=== PATIENT | female | born 1940 | race Caucasian/White ===

== ENCOUNTER 2017-06-05 10:23 | Emergency (ER) | payer OTHER ==
[2017-06-05 10:34] VITALS: BP 157/94
--- NOTE | 2017-06-05 11:28 | UC ---
Eye Complaint HPI - HPI Summary HPI Summary: swelling left upper eyelid, no eye pain, no eye redness , no eye discharge, no change in vision - History of Current Complaint Chief Complaint: UCEye Stated Complaint: EYE COMPLAINT Time Seen by Provider: 06/05/17 11:01 Hx Obtained From: Patient Onset/Duration: Gradual Onset, Lasting Days - 1, Still Present Timing: Constant Severity Initially: Moderate Severity Currently: Moderate Location of Injury: Periorbital - left upper eyelid Aggravating Factor(s): Nothing Alleviating Factor(s): Nothing Associated Signs And Symptoms: Positive: Negative - Allergies/Home Medications Allergies/Adverse Reactions: Allergies Allergy/AdvReac Type Severity Reaction Status Date / Time Atorvastatin [From Lipitor] Allergy See Comment Verified 06/05/17 10:35 Home Medications: Home Medications Ezetimibe TAB* [Zetia TAB*] 10 mg PO DAILY 06/05/17 [History Confirmed 06/05/17] PMH/Surg Hx/FS Hx/Imm Hx Cardiovascular History: Other - high cholestrol Other Cardiovascular History: hyperlipidemia - Surgical History Surgical History: None - Family History Known Family History: Positive: Hypertension - Social History Alcohol Use: Daily Substance Use Type: None Smoking Status (MU): Never Smoked Tobacco Review of Systems Constitutional: Negative Skin: Negative ENT: Negative Respiratory: Negative Cardiovascular: Negative All Other Systems Reviewed And Are Negative: Yes Physical Exam Triage Information Reviewed: Yes Appearance: Well-Appearing, No Pain Distress, Well-Nourished Vital Signs: Initial Vital Signs Temp 97.7 F 06/05/17 10:31 Pulse 79 06/05/17 10:31 Resp 16 06/05/17 10:31 BP 157/94 06/05/17 10:31 Vital Signs Reviewed: Yes Eye Exam: Normal Eyes: Positive: Conjunctiva Clear, Other: - edemal left upper eyelid. Negative : Conjunctiva Inflamed, Discharge ENT: Positive: Normal ENT inspection, Hearing grossly normal, Pharynx normal Neck: Positive: Supple, Nontender, No Lymphadenopathy Respiratory: Positive: Chest non-tender, Lungs clear, Normal breath sounds Cardiovascular: Positive: RRR, No Murmur, Pulses Normal Skin Exam: Normal Eye Complaint Course/Dx - Differential Dx/Diagnosis Provider Diagnoses: periorbital edema left eye Discharge - Discharge Plan Condition: Stable Disposition: HOME Patient Education Materials: Insect Bite or Sting (ED) Referrals: Non Staff,Doctor [Primary Care Provider] - If Needed Additional Instructions: periorbital edema most likely due to a insect bite use cool compresses for 10 min 5 x per day cont. with your allergy meds daily follow up as needed
== END 2017-06-05 11:33 | disposition home or self-care (01) ==
LOC: UCCORT 10:23
DX: H02.846 Edema of left eye, unspecified eyelid (principal); E78.00 Pure hypercholesterolemia, unspecified; E78.5 Hyperlipidemia, unspecified
CPT/HCPCS: 99201; G0463